=== PATIENT | male | born 1965 | race Caucasian/White ===

== ENCOUNTER 2023-11-28 14:16 | Outpatient (CLI) | payer BC, SELFPAY ==
[2023-11-28 12:35] LABS: Hemoglobin A1C 5.6 % (<5.7)
[2023-11-28 13:09] LABS: Anion Gap 9.3 mmol/L (3-11); BUN 14 mg/dL (7-18); CO2 26.7 mmol/L (21.0-32.0); Calcium 9.8 mg/dL (8.5-10.1); Calculated LDL 102 mg/dL (<100); Chloride 102 mmol/L (98-107); Cholesterol 214 mg/dL (<200); Estimated GFR 88.88 (mL/min/1.73m2); Glucose 106 mg/dL (74-106); HDL Cholesterol 41 mg/dL (40-60); Potassium 4.1 mmol/L (3.5-5.1); Sodium 138 mmol/L (136-145); Triglyceride 358 mg/dL (<150)
== END 2023-11-28 14:17 | disposition home or self-care (01) ==
LOC: LBO 14:17
PROVIDERS: PCP Nurse Practitioner Family; Visit Provider Nurse Practitioner Family
DX: Z12.5 Encounter for screening for malignant neoplasm of prostate (principal); Z13.220 Encounter for screening for lipoid disorders; I10 Essential (primary) hypertension; Z13.1 Encounter for screening for diabetes mellitus
CPT/HCPCS: 36415; 80048; 80061; 84153; 83036

== ENCOUNTER → 2023-11-28 14:23 | Outpatient (CLI) | payer BC, SELFPAY ==
--- NOTE | 2023-11-28 11:40 | DI.RAD_ITS ---
Exam(s) XR SHOULDER LT COMPLETE 2+V EXAM: XR SHOULDER LT COMPLETE 2+V CLINICAL HISTORY: [place] and now unable to move arm,lt shoulder pain, m25.512. TECHNIQUE: 2D digital imaging was performed. Three views. COMPARISON: No exams were available for comparison FINDINGS: BONES: No acute fracture is present. No bony destructive lesion is seen. JOINTS: Normal glenohumeral joint alignment. Mild spurring at the AC joint. Minimal spurring at the glenoid. Glenohumeral joint space is maintained. SOFT TISSUE: Normal. IMPRESSION: Mild degenerative changes. DATA REPOSITORY: RADIATION DOSE DELIVERED:
== END ==
PROVIDERS: PCP Nurse Practitioner Family; Visit Provider Nurse Practitioner Family
DX: M25.512 Pain in left shoulder (principal)
CPT/HCPCS: 73030

== ENCOUNTER 2024-02-13 14:33 | Outpatient (RCR) | payer BC, SELFPAY ==
--- NOTE | 2024-02-20 07:45 | HOLTER_ITS ---
APPROVED REPORT Conclusion This is a 48-hour Holter monitor Rhythm throughout was sinus with an average heart rate of 95. Minimum was 70, maximum 125 There was 1 isolated atrial premature beat There were no other additional dysrhythmias No patient symptoms were reported
== END 2024-02-21 23:59 | disposition home or self-care (01) ==
LOC: CARDOPNVT 14:33
PROVIDERS: PCP Nurse Practitioner Family; Visit Provider Internal Medicine Cardiovascular Disease
DX: R00.0 Tachycardia, unspecified (principal)
CPT/HCPCS: 93225